=== PATIENT | male | born 1940 | race Caucasian/White ===

== ENCOUNTER → 2017-08-19 | Outpatient (CLI) | payer OTHER ==
[~2017-08-19] MED LIST: AMLO5TAB2 PO; ASPI-1181 PO; FURO40TA5 PO; LANS15CA14 PO; LOSA100T29 PO; METO50TA18 PO; MULT-1192 PO; RIVA20TA PO
== END | disposition home or self-care (01) ==
LOC: SHCH 10:54
PROVIDERS: ATTEND Internal Medicine Cardiovascular Disease
DX: I51.7 Cardiomegaly (principal); I48.0 Paroxysmal atrial fibrillation
CPT/HCPCS: 93306

== ENCOUNTER 2019-02-28 07:49 | Day surgery (SDC) | payer OTHER ==
[2019-02-24 10:50] VITALS: BP 111/75
[2019-02-24 10:57] LABS: BASOPHILS % (AUTO) 1.6 % (0.0-5.0); HEMATOCRIT 43.3 % (42-54); LYMPHOCYTES % (AUTO) 21.9 % (21.0-51.0); MEAN CORPUSCULAR HGB CONC 34.2 g/dL (32.0-36.0); MEAN CORPUSCULAR VOLUME 93.5 fL (79-99); MONOCYTES % (AUTO) 14.3 % (3.0-13.0); NEUTROPHILS % (AUTO) 59.2 % (40.0-77.0); PLATELET COUNT (AUTO) 262 K/uL (130-400); RED BLOOD CELL COUNT(AUTO) 4.62 MIL/uL (4.50-6.20); RED CELL DISTRIBUTION WIDTH 14.4 % (11.0-15.5); WHITE BLOOD COUNT (AUTO) 7.1 K/uL (4.8-10.8)
[2019-02-24 11:00] LABS: CREATININE 0.8 mg/dL (0.5-1.5); POTASSIUM 3.5 mmol/L (3.5-5.1)
[2019-02-24 11:03] LABS: INR 1.15 (0.85-1.15); PARTIAL THROMBOPLASTIN TIME 31.3 SEC (26.3-35.5)
[2019-02-28] VITALS (13 sets, daily range): BP systolic 118–137; BP diastolic 73–99
[~2019-02-28] VITALS: Ht 177.8 cm; Wt 100.5 kg
[~2019-02-28 07:49] MED LIST changes: -AMLO5TAB2 PO; +AMLO5TAB9 PO; -ASPI-1181 PO; -LANS15CA14 PO; -LOSA100T29 PO; +LOSA100T58 PO; -METO50TA18 PO; -MULT-1192 PO; +OMEP-50 PO; +SOTA120T PO
[2019-02-28] MEDS ORDERED: MIDAZOLAM HCL 1 MG/ML 2ML VIAL ONE (09:06)
[2019-02-28] MEDS ORDERED: FENTANYL CITRATE PF 50 MCG/1 ML 2ML VIAL ONE (09:07)
[2019-02-28] MEDS ORDERED: SODIUM CHLORIDE 0.9% 1000ML 1,000 ML IV ONE (09:27)
== END 2019-02-28 12:45 | disposition home or self-care (01) ==
LOC: DAH 07:49
PROVIDERS: ATTEND Internal Medicine Cardiovascular Disease
DX: I42.0 Dilated cardiomyopathy (principal); D68.59 Other primary thrombophilia; N40.0 Benign prostatic hyperplasia without lower urinary tract symptoms; I11.0 Hypertensive heart disease with heart failure; I50.23 Acute on chronic systolic (congestive) heart failure; I48.0 Paroxysmal atrial fibrillation; Z87.891 Personal history of nicotine dependence; Z90.49 Acquired absence of other specified parts of digestive tract; Z98.890 Other specified postprocedural states; Z82.49 Family history of ischemic heart disease and other diseases of the circulatory system; Z82.3 Family history of stroke; Z72.89 Other problems related to lifestyle; Z87.01 Personal history of pneumonia (recurrent); Z88.0 Allergy status to penicillin; Z79.01 Long term (current) use of anticoagulants; Z79.899 Other long term (current) drug therapy
CPT/HCPCS: 36415; 80048; 85025; 85610; 85730; 92960; 93005 ×2; A4215; A4216; A4221; A4222; A4223 ×3; A4606; A4615; A4663; J2250; J3010; J7030; 99152

== ENCOUNTER → 2020-01-06 | Outpatient (CLI) | payer OTHER ==
[~2020-01-06] MED LIST changes: -OMEP-50 PO; +OMEP20CA12 PO; +SERT50TA12 PO; +SOTA160T PO
== END | disposition home or self-care (01) ==
LOC: SHCH 10:41
PROVIDERS: ATTEND Internal Medicine Cardiovascular Disease
DX: I51.7 Cardiomegaly (principal); I49.8 Other specified cardiac arrhythmias
CPT/HCPCS: 93306

== ENCOUNTER 2020-01-17 06:29 | Day surgery (SDC) | payer OTHER ==
[2020-01-13 13:34] VITALS: BP 126/81
[2020-01-13 14:17] LABS: BASOPHILS % (AUTO) 1.5 % (0.0-5.0); EOSINOPHILS % (AUTO) 3.1 % (0.0-8.0); HEMATOCRIT 42.8 % (42-54); LYMPHOCYTES % (AUTO) 22.6 % (21.0-51.0); MEAN CORPUSCULAR HGB CONC 34.1 g/dL (32.0-36.0); MEAN CORPUSCULAR VOLUME 90.9 fL (79-99); MONOCYTES % (AUTO) 12.7 % (3.0-13.0); NEUTROPHILS % (AUTO) 59.9 % (40.0-77.0); PLATELET COUNT (AUTO) 324 K/uL (130-400); RED BLOOD CELL COUNT(AUTO) 4.71 MIL/uL (4.50-6.20); RED CELL DISTRIBUTION WIDTH 13.9 % (11.0-15.5); WHITE BLOOD COUNT (AUTO) 8.4 K/uL (4.8-10.8)
[2020-01-13 14:26] LABS: CREATININE 0.8 mg/dL (0.5-1.5); POTASSIUM 3.9 mmol/L (3.5-5.1)
[~2020-01-17] VITALS: Ht 180.3 cm; Wt 99.3 kg
[2020-01-17] VITALS (18 sets, daily range): BP systolic 106–163; BP diastolic 62–93
[~2020-01-17 06:29] MED LIST changes: +SODIUM CHLORIDE 0.9% 1000ML 1,000 ML IV SCH; -SOTA120T PO
--- NOTE | 2020-01-17 06:40 | NUR ---
preop pt arrived ambulatory in no distress. pt oriented to room and calllight. pt here for cardioversion.
[2020-01-17] MEDS ORDERED: NALOXONE HCL 0.4 MG/1 ML ML ONE (07:55)
[2020-01-17] MEDS ORDERED: FENTANYL CITRATE PF 50 MCG/1 ML 2ML VIAL ONE (07:56)
[2020-01-17] MEDS ORDERED: MIDAZOLAM HCL 1 MG/ML 2ML VIAL ONE (07:57)
[2020-01-17] MEDS ORDERED: FLUMAZENIL 0.1MG/1ML 5ML VIAL IV ONE (07:59)
--- NOTE | 2020-01-17 08:10 | NUR ---
CARDIOVERSION CARDIOVERSION PERFORMED AT BEDSIDE TIME OUT DONE AT [address] HOWARD START TIME AT 0814 VERSED 1MG/FENTANYL 50MCG IVP SLOW AT 0814 VERSED 1MG/FENTANYL 25MCG IVP SLOW AT 0819 VERSED 1MG/FENTANYL 25MCG IVP SLOW AT 0823 VERSED 1MG/FENTANYL 25MCG IVP SLOW AT 0826 SHOCK #1 100 JOULES AT 0827 DID NOT CONVERT SHOCK #2 200 JOULES AT 0828 CONVERTED BOTH EXTERNAL SHOCKS FINISH PROCEDURE TIME AT 929 RECOVERY STARTED AT 929 PT TOLERATED PROCEDURE WELL WITH NO DISCOMFORTS. PT COVERTED, V/S STABLE, DR HOWARD SPOKE TO AND OUT OF ROOM AT 09. PT WILL BE DISCHARGED AT 10 AM PER MD ORDERS. Addendum: 01/17/20 at 1024 by JULIETA ALLEN RN RN CORRECTION PROCEDURE FINISH TIME 829 RECOVERY STARTED AT 829 DR HOWARD SPOKE TO VIA PHONE AT 829 AND LEFT ROOM
--- NOTE | 2020-01-17 10:00 | NUR ---
DISCHARGE PTS GIVEN DISCHARGE INSTRUCTIONS VIA PHONE. PT IN NO DISTRESS AND TAKEN OUT VIA W/C BY PAULA ABEL.
== END 2020-01-17 10:00 | disposition home or self-care (01) ==
LOC: DAH 06:29
PROVIDERS: ATTEND Internal Medicine Cardiovascular Disease
DX: I48.0 Paroxysmal atrial fibrillation (principal); I49.1 Atrial premature depolarization; I11.0 Hypertensive heart disease with heart failure; I50.43 Acute on chronic combined systolic (congestive) and diastolic (congestive) heart failure; I44.7 Left bundle-branch block, unspecified; I42.0 Dilated cardiomyopathy; E66.3 Overweight; Z68.30 Body mass index [BMI] 30.0-30.9, adult; Z72.89 Other problems related to lifestyle; Z79.01 Long term (current) use of anticoagulants; Z98.890 Other specified postprocedural states; Z87.891 Personal history of nicotine dependence; Z88.0 Allergy status to penicillin
CPT/HCPCS: 36415; 80048; 85025; 92960; 93005 ×2; A4215; A4216; A4221; A4222; A4223 ×3; A4606; A4615; A4657; A4663; J2250; J3010; J7030 ×2; 99152; 99153; J2310; J3490

== ENCOUNTER 2020-05-07 07:19 | Day surgery (SDC) | payer OTHER ==
[2020-05-04 13:32] LABS: BASOPHILS % (AUTO) 1.2 % (0.0-5.0); EOSINOPHILS % (AUTO) 2.4 % (0.0-8.0); HEMATOCRIT 42.9 % (42-54); LYMPHOCYTES % (AUTO) 15.7 % (21.0-51.0); MEAN CORPUSCULAR HEMOGLOBIN 31.2 pg (27.0-33.0); MEAN CORPUSCULAR HGB CONC 33.3 g/dL (32.0-36.0); MEAN CORPUSCULAR VOLUME 93.5 fL (79-99); MONOCYTES % (AUTO) 13.9 % (3.0-13.0); NEUTROPHILS % (AUTO) 66.5 % (40.0-77.0); PLATELET COUNT (AUTO) 332 K/uL (130-400); RED BLOOD CELL COUNT(AUTO) 4.59 MIL/uL (4.50-6.20); RED CELL DISTRIBUTION WIDTH 14.4 % (11.0-15.5); WHITE BLOOD COUNT (AUTO) 9.4 K/uL (4.8-10.8)
[2020-05-04 13:39] LABS: POTASSIUM 3.8 mmol/L (3.5-5.1)
[2020-05-04 14:23] VITALS: BP 119/70
[~2020-05-07] VITALS: Ht 180.3 cm; Wt 101.7 kg
[~2020-05-07 07:19] MED LIST changes: +AMIO200T6 PO; +AMLO-257 PO; -AMLO5TAB9 PO; -SODIUM CHLORIDE 0.9% 1000ML 1,000 ML IV SCH; -SOTA160T PO
[2020-05-07 07:45] VITALS: BP 149/84
[2020-05-07] MEDS ORDERED: SODIUM CHLORIDE 0.9% 1000ML 1,000 ML IV ONE (08:22)
[2020-05-07] MEDS ORDERED: PROPOFOL 10 MG/ML 20ML VIAL IV ONE (10:54)
[2020-05-07 11:30] VITALS: BP 138/75
--- NOTE | 2020-05-07 11:30 | NUR ---
SUCCESSFUL CARDIOVERSION. PT AWAKE AND ALERT. NO ACUTE DISTRESS NOTED. PLACED BACK ON ROOM AIR. AIRWAY PATENT . VS STABLE
[2020-05-07 11:45] VITALS: BP 121/70
[2020-05-07 12:00] VITALS: BP 122/74
[2020-05-07 12:30] VITALS: BP 136/79
--- NOTE | 2020-05-07 12:30 | NUR ---
PT DISCHARGED HOME- AWAKE AND ALERT. PRINTED AND VERBAL DISCHARGE INSTRUCTION GIVEN VERBALIZES UNDERSTANDING IV CATH RT WRIST REMOVED INTACT. TO CAR VIA WHEELCHAIR. STABLE
== END 2020-05-07 12:30 | disposition home or self-care (01) ==
LOC: DAH 07:19
PROVIDERS: ATTEND Internal Medicine Cardiovascular Disease
DX: I48.19 Other persistent atrial fibrillation (principal); Z20.828 Contact with and (suspected) exposure to other viral communicable diseases; I42.0 Dilated cardiomyopathy; I11.0 Hypertensive heart disease with heart failure; I50.23 Acute on chronic systolic (congestive) heart failure; I44.7 Left bundle-branch block, unspecified; Z79.899 Other long term (current) drug therapy; Z87.891 Personal history of nicotine dependence; Z98.890 Other specified postprocedural states; Z82.49 Family history of ischemic heart disease and other diseases of the circulatory system; Z79.01 Long term (current) use of anticoagulants
CPT/HCPCS: 36415; 80048; 85025; 92960; 93005 ×2; A4215; A4216; A4221; A4222; A4223 ×3; A4606; A4615; A4663; C9803; J2704; J7030; U0003; 99156

== ENCOUNTER → 2020-07-11 | Outpatient (CLI) | payer OTHER ==
[~2020-07-11] MED LIST changes: +SERT-439 PO; -SERT50TA12 PO
== END | disposition home or self-care (01) ==
LOC: SHCH 15:01
PROVIDERS: ATTEND Internal Medicine Cardiovascular Disease
DX: I87.2 Venous insufficiency (chronic) (peripheral) (principal)
CPT/HCPCS: 93970

== ENCOUNTER → 2021-04-09 | Outpatient (CLI) | payer OTHER ==
[~2021-04-09] MED LIST changes: -AMIO200T6 PO; +AMIO200T68 PO; +DRON400T7 PO; +LEVO75CA5 PO; +METO2.5T2 PO
== END | disposition home or self-care (01) ==
LOC: SHCH 14:58
PROVIDERS: ATTEND Internal Medicine Cardiovascular Disease
DX: I35.0 Nonrheumatic aortic (valve) stenosis (principal); I11.9 Hypertensive heart disease without heart failure; R55 Syncope and collapse
CPT/HCPCS: 93306; 93356

== ENCOUNTER 2021-04-24 07:23 | Day surgery (SDC) | payer OTHER ==
[2021-04-23 12:08] LABS: BASOPHILS % (AUTO) 1.4 % (0.0-5.0); EOSINOPHILS % (AUTO) 3.2 % (0.0-8.0); HEMATOCRIT 39.1 % (42-54); LYMPHOCYTES % (AUTO) 18.8 % (21.0-51.0); MEAN CORPUSCULAR HEMOGLOBIN 30.7 pg (27.0-33.0); MEAN CORPUSCULAR HGB CONC 33.2 g/dL (32.0-36.0); MEAN CORPUSCULAR VOLUME 92.4 fL (79-99); MONOCYTES % (AUTO) 16.7 % (3.0-13.0); NEUTROPHILS % (AUTO) 59.7 % (40.0-77.0); PLATELET COUNT (AUTO) 336 K/uL (130-400); RED BLOOD CELL COUNT(AUTO) 4.23 MIL/uL (4.50-6.20); RED CELL DISTRIBUTION WIDTH 13.5 % (11.0-15.5); WHITE BLOOD COUNT (AUTO) 8.3 K/uL (4.8-10.8)
[2021-04-23 12:39] LABS: INR 1.43 (0.85-1.15); PROTHROMBIN TIME 15.1 SEC (9.6-11.6)
[2021-04-23 12:40] LABS: PARTIAL THROMBOPLASTIN TIME 39.4 SEC (26.3-35.5)
[2021-04-23 12:45] LABS: CREATININE 1.7 mg/dL (0.5-1.5); POTASSIUM 3.8 mmol/L (3.5-5.1)
[2021-04-23 13:12] VITALS: BP 124/71
[2021-04-24] VITALS (10 sets, daily range): BP systolic 110–130; BP diastolic 64–76
[~2021-04-24] VITALS: Ht 181.6 cm; Wt 107.5 kg
[~2021-04-24 07:23] MED LIST changes: -AMIO200T68 PO; -SERT-439 PO
[2021-04-24] MEDS ORDERED: 0.9%NACL 1000ML 1,000 ML IV ONE (07:31)
[2021-04-24] MEDS ORDERED: PROPOFOL 10 MG/ML 20ML VIAL IV ONE (09:40)
== END 2021-04-24 10:35 | disposition home or self-care (01) ==
LOC: DAH 07:23 → CLH 07:23
PROVIDERS: ATTEND Internal Medicine Cardiovascular Disease
DX: I48.19 Other persistent atrial fibrillation (principal); I11.0 Hypertensive heart disease with heart failure; I50.23 Acute on chronic systolic (congestive) heart failure; Z88.0 Allergy status to penicillin; Z79.01 Long term (current) use of anticoagulants; Z79.899 Other long term (current) drug therapy; Z20.822 Contact with and (suspected) exposure to COVID-19
CPT/HCPCS: 36415; 80048; 85025; 85610; 85730; 87635; 92960; 93005 ×2; A4215; A4216; A4221; A4222; A4223 ×3; A4606; A4663; C9803; J2704; J7030; 99156

== ENCOUNTER → 2022-01-06 | Outpatient (CLI) | payer OTHER ==
[~2022-01-06] VITALS: Ht 180.3 cm; Wt 99.3 kg
[~2022-01-06] MED LIST changes: +REGADENOSON 0.4 MG/5 ML PF SYG IVP SCH
== END | disposition home or self-care (01) ==
LOC: SHCH 08:40
PROVIDERS: ATTEND Internal Medicine Cardiovascular Disease
DX: I48.0 Paroxysmal atrial fibrillation (principal); I47.2 Ventricular tachycardia; I48.91 Unspecified atrial fibrillation; I48.92 Unspecified atrial flutter
CPT/HCPCS: 78452; 96374; 93017; J2785; A9500 ×2

== ENCOUNTER → 2022-03-12 | Outpatient (CLI) | payer OTHER ==
[~2022-03-12] MED LIST changes: +ALBUTEROL 0.083% 2.5 MG/3 ML INH IH ONE; +DILT120C43 PO; -LOSA100T58 PO; +LOSA50TA64 PO; +MIRT-93 PO; +POLY17PO4 PO; -REGADENOSON 0.4 MG/5 ML PF SYG IVP SCH
== END | disposition home or self-care (01) ==
LOC: RESP 08:33
PROVIDERS: ATTEND Internal Medicine Cardiovascular Disease
DX: G47.30 Sleep apnea, unspecified (principal); R06.02 Shortness of breath
CPT/HCPCS: 94060; 94727; 94729

== ENCOUNTER 2022-04-11 06:13 | Day surgery (SDC) | payer OTHER ==
[2022-04-10 09:52] LABS: BASOPHILS % (AUTO) 0.8 % (0.0-5.0); EOSINOPHILS % (AUTO) 3.4 % (0.0-8.0); LYMPHOCYTES % (AUTO) 19.6 % (21.0-51.0); MEAN CORPUSCULAR HEMOGLOBIN 28.8 pg (27.0-33.0); MEAN CORPUSCULAR HGB CONC 31.5 g/dL (32.0-36.0); MEAN CORPUSCULAR VOLUME 91.3 fL (79-99); MONOCYTES % (AUTO) 15.3 % (3.0-13.0); NEUTROPHILS % (AUTO) 60.6 % (40.0-77.0); PLATELET COUNT (AUTO) 339 K/uL (130-400); RED BLOOD CELL COUNT(AUTO) 4.27 MIL/uL (4.50-6.20); RED CELL DISTRIBUTION WIDTH 14.5 % (11.0-15.5); WHITE BLOOD COUNT (AUTO) 7.1 K/uL (4.8-10.8)
[2022-04-10 10:02] LABS: INR 1.17 (0.85-1.15); PROTHROMBIN TIME 12.6 SEC (9.6-11.6)
[2022-04-10 10:04] LABS: PARTIAL THROMBOPLASTIN TIME 33.5 SEC (26.3-35.5)
[2022-04-10 10:05] LABS: CREATININE 0.9 mg/dL (0.5-1.5); POTASSIUM 4.1 mmol/L (3.5-5.1)
[2022-04-10 11:39] VITALS: BP 138/92
[2022-04-11] VITALS (13 sets, daily range): BP systolic 124–148; BP diastolic 71–100
[~2022-04-11] VITALS: Ht 180.3 cm; Wt 98.0 kg
[~2022-04-11 06:13] MED LIST changes: +0.9%NACL 1000ML 1,000 ML IV SCH; -ALBUTEROL 0.083% 2.5 MG/3 ML INH IH ONE; -AMLO-257 PO; -LEVO75CA5 PO; +LOSA100T58 PO; -LOSA50TA64 PO; -METO2.5T2 PO; -MIRT-93 PO; -POLY17PO4 PO
[2022-04-11] MEDS ORDERED: PHENYLEPHRINE HCL 10 MG/ML 1ML VIAL IV ONE ×2 (08:33→08:35)
[2022-04-11] MEDS ORDERED: PROPOFOL 10 MG/ML 20ML VIAL IV ONE (08:33)
== END 2022-04-11 09:45 | disposition home or self-care (01) ==
LOC: DAH 06:13
PROVIDERS: ATTEND Internal Medicine Cardiovascular Disease
DX: I48.19 Other persistent atrial fibrillation (principal); Z20.822 Contact with and (suspected) exposure to COVID-19; I44.7 Left bundle-branch block, unspecified; I11.0 Hypertensive heart disease with heart failure; I42.0 Dilated cardiomyopathy; I50.23 Acute on chronic systolic (congestive) heart failure; Z98.890 Other specified postprocedural states; Z79.899 Other long term (current) drug therapy; Z82.3 Family history of stroke; Z79.01 Long term (current) use of anticoagulants; Z87.891 Personal history of nicotine dependence
CPT/HCPCS: 87426; 80048; 85025; 85610; 85730; 36415; 92960; 93005 ×2; J7030; J2704; J2370 ×2; A4215; A4222; A4221; A4663; A4216; A4606; A4223 ×3; 99156

== ENCOUNTER → 2022-05-07 | Outpatient (CLI) | payer OTHER ==
[~2022-05-07] MED LIST changes: -0.9%NACL 1000ML 1,000 ML IV SCH; +IOHEXOL 350 MG/ML 100ML INFUS..BTL IV ONE
== END | disposition home or self-care (01) ==
LOC: RAH 08:03
PROVIDERS: ATTEND Internal Medicine Cardiovascular Disease
DX: J92.9 Pleural plaque without asbestos (principal); I48.0 Paroxysmal atrial fibrillation; I51.7 Cardiomegaly; J98.4 Other disorders of lung
CPT/HCPCS: 71275; Q9967

== ENCOUNTER 2022-06-27 17:51 | Inpatient (IN) | payer OTHER ==
[~2022-06-27] VITALS: Ht 180.3 cm; Wt 97.4 kg
[~2022-06-27 17:51] MED LIST changes: -IOHEXOL 350 MG/ML 100ML INFUS..BTL IV ONE; -OMEP20CA12 PO
[2022-06-27 18:55] LABS: BASOPHILS % (AUTO) 1.3 % (0.0-5.0); EOSINOPHILS % (AUTO) 1.6 % (0.0-8.0); MEAN CORPUSCULAR HEMOGLOBIN 27.2 pg (27.0-33.0); MEAN CORPUSCULAR HGB CONC 31.4 g/dL (32.0-36.0); MEAN CORPUSCULAR VOLUME 86.7 fL (79-99); MONOCYTES % (AUTO) 15.6 % (3.0-13.0); NEUTROPHILS % (AUTO) 66.3 % (40.0-77.0); PLATELET COUNT (AUTO) 374 K/uL (130-400); RED BLOOD CELL COUNT(AUTO) 4.15 MIL/uL (4.50-6.20); RED CELL DISTRIBUTION WIDTH 14.7 % (11.0-15.5)
[2022-06-27] MEDS ORDERED: ALBUTEROL 0.083% 2.5 MG/3 ML INH IH ONE (19:00)
[2022-06-27 19:07] LABS: CREATININE 0.8 mg/dL (0.5-1.5); POTASSIUM 3.9 mmol/L (3.5-5.1)
[2022-06-27 19:12] LABS: ALBUMIN 3.8 g/dL (3.5-5.0); TOTAL PROTEIN, SERUM 6.5 g/dL (6.0-8.3)
[2022-06-27 19:17] LABS: B-TYPE NATRIURETIC PEPTIDE 482 pg/mL (0-100)
[2022-06-27] MEDS ORDERED: SOLU-MEDROL 125MG VIAL ONE (19:50)
[2022-06-27] MEDS ORDERED: SOLU-MEDROL 125MG VIAL IVP ONE (20:00)
[2022-06-27] MEDS ORDERED: IPRATROPIUM/ALBUTEROL SULFATE 3 ML SOLUTION IH ONE (20:00)
[2022-06-27] MEDS: IPRATROPIUM/ALBUTEROL SULFATE 3 ML SOLUTION IH ONE ×2 (20:01→20:09)
[2022-06-27] MEDS ORDERED: IOHEXOL 350 MG/ML 100ML INFUS..BTL IV ONE (20:58)
[2022-06-27] MEDS ORDERED: HYDRALAZINE 20MG/ML VIAL IV PRN (21:00)
[2022-06-27] MEDS ORDERED: ACETAMINOPHEN 325 MG TAB PO PRN (21:00)
[2022-06-27] MEDS ORDERED: ONDANSETRON 4MG INJ IVP PRN (21:00)
[2022-06-27] MEDS ORDERED: LACTULOSE 20 GM/30 ML UDCUP PO PRN (21:00)
[2022-06-27] MEDS ORDERED: IPRATROPIUM/ALBUTEROL SULFATE 3 ML SOLUTION IH PRN (21:00)
[2022-06-27] MEDS ORDERED: FUROSEMIDE 40MG VIAL IV ONE (21:00)
[2022-06-27] MEDS ORDERED: AZITHROMYCIN 500MG+NS 250ML IVPB SCH (21:00)
[2022-06-27] MEDS ORDERED: CLONIDINE HCL 0.1 MG TABLET PO PRN (21:00)
[2022-06-27] MEDS ORDERED: CEFTRIAXONE 1G VIAL IVP ONE (21:00)
[2022-06-27 21:28] LABS: APPEARANCE,URINE CLEAR (CLEAR); BILIRUBIN,URINE NEGATIVE (NEGATIVE); COLOR,URINE COLORLESS (YELLOW); GLUCOSE, URINE (UA) NEGATIVE (NEGATIVE); KETONES,URINE NEGATIVE (NEGATIVE); LEUKOCYTE ESTERASE ,URINE NEGATIVE Leu/uL (NEGATIVE); NITRATE,URINE NEGATIVE (NEGATIVE); OCCULT BLOOD,URINE NEGATIVE (NEGATIVE); PROTEIN,URINE NEGATIVE (NEGATIVE); UROBILINOGEN,URINE 0.2 mg/dL (0.2-1.0)
[2022-06-27 21:31] LABS: WBC,URINE 0-1 /HPF (0-1)
[2022-06-27] MEDS: DOCUSATE SODIUM 100 MG CAP PO SCH (21:52)
[2022-06-28 00:41] VITALS: BP 145/94
[2022-06-28] MEDS ORDERED: TEMA30CA PO (01:18)
[2022-06-28] MEDS ORDERED: OMEP20TA20 PO (01:18)
[2022-06-28 03:57] VITALS: BP 135/71
[2022-06-28 04:34] LABS: BASOPHILS % (AUTO) 0.3 % (0.0-5.0); HEMATOCRIT 33.9 % (42-54); LYMPHOCYTES % (AUTO) 3.6 % (21.0-51.0); MEAN CORPUSCULAR HEMOGLOBIN 27.5 pg (27.0-33.0); MEAN CORPUSCULAR VOLUME 88.7 fL (79-99); MONOCYTES % (AUTO) 1.2 % (3.0-13.0); NEUTROPHILS % (AUTO) 94.6 % (40.0-77.0); PLATELET COUNT (AUTO) 336 K/uL (130-400); RED BLOOD CELL COUNT(AUTO) 3.82 MIL/uL (4.50-6.20); RED CELL DISTRIBUTION WIDTH 14.7 % (11.0-15.5); WHITE BLOOD COUNT (AUTO) 5.9 K/uL (4.8-10.8)
[2022-06-28 04:51] LABS: CREATININE 0.8 mg/dL (0.5-1.5); MAGNESIUM 1.8 mg/dL (1.80-2.40); PHOSPHORUS 3.7 mg/dL (2.5-4.9); POTASSIUM 3.6 mmol/L (3.5-5.1)
[2022-06-28] MEDS ORDERED: MAGNESIUM 2GM PREMIX 50ML 50 ML IV PRN (06:00)
[2022-06-28] MEDS ORDERED: POTASSIUM CHLORIDE 10MEQ/100ML 100 ML IV PRN (06:00)
[2022-06-28] MEDS ORDERED: POTASSIUM CHLORIDE 10% ELIXIR 20 MEQ/15 ML UDCUP PO PRN (06:00)
[2022-06-28] MEDS ORDERED: LIDOCAINE HCL-MPF 1% 2ML VIAL IV PRN (06:00)
[2022-06-28] MEDS ORDERED: KCL 20 MEQ ERTAB PO PRN (06:00)
[2022-06-28] MEDS: ALBUTEROL 0.083% 2.5 MG/3 ML INH IH SCH ×4 (06:47→23:55)
[2022-06-28] MEDS: IPRATROPIUM 0.5 MG/2.5 ML INH IH SCH ×6 (06:47→23:55)
[2022-06-28 08:00] VITALS: BP 147/92
[2022-06-28] MEDS: DOCUSATE SODIUM 100 MG CAP PO SCH ×2 (09:00→21:10)
[2022-06-28] MEDS: POLYETHYLENE GLYCOL 3350 17 GM POWD.PACK PO SCH (09:00)
[2022-06-28] MEDS: BENZONATATE 100 MG CAPSULE PO SCH ×2 (09:02→16:08)
[2022-06-28] MEDS: GUAIFENESIN-DM 200/20 MG 10 ML PO PRN (09:02)
[2022-06-28] MEDS: FAMOTIDINE 20MG TAB PO SCH ×2 (09:02→21:10)
[2022-06-28] MEDS: DRONEDARONE HYDROCHLORIDE 400 MG TABLET PO SCH ×2 (09:02→21:09)
[2022-06-28] MEDS: FUROSEMIDE 40MG VIAL IV SCH ×2 (09:03→21:10)
[2022-06-28] MEDS: LOSARTAN 100 MG TABLET PO SCH ×2 (09:03→21:10)
[2022-06-28] MEDS: DILTIAZEM 120MG SR CAP PO SCH (09:03)
[2022-06-28 12:00] VITALS: BP 152/95
[2022-06-28 16:00] VITALS: BP 127/73
[2022-06-28] MEDS: RIVAROXABAN 20 MG TABLET PO SCH (21:09)
[2022-06-28 21:10] VITALS: BP 151/89
[2022-06-28] MEDS: TEMAZEPAM 30 MG CAP PO SCH (21:35)
[2022-06-29] VITALS (7 sets, daily range): BP systolic 116–155; BP diastolic 71–96
[2022-06-29] MEDS: BENZONATATE 100 MG CAPSULE PO SCH ×5 (00:30→23:53)
[2022-06-29 05:00] LABS: MEAN CORPUSCULAR HEMOGLOBIN 27.5 pg (27.0-33.0); MEAN CORPUSCULAR HGB CONC 30.6 g/dL (32.0-36.0); RED CELL DISTRIBUTION WIDTH 14.9 % (11.0-15.5)
[2022-06-29 05:15] LABS: CREATININE 0.8 mg/dL (0.5-1.5); POTASSIUM 4.1 mmol/L (3.5-5.1)
[2022-06-29] MEDS: IPRATROPIUM 0.5 MG/2.5 ML INH IH SCH ×6 (06:00→23:38)
[2022-06-29] MEDS: ALBUTEROL 0.083% 2.5 MG/3 ML INH IH SCH ×4 (06:26→23:36)
[2022-06-29] MEDS: DRONEDARONE HYDROCHLORIDE 400 MG TABLET PO SCH ×2 (08:28→20:24)
[2022-06-29] MEDS: LOSARTAN 100 MG TABLET PO SCH ×2 (08:28→20:22)
[2022-06-29] MEDS: FUROSEMIDE 40MG VIAL IV SCH ×2 (08:28→20:24)
[2022-06-29] MEDS: FAMOTIDINE 20MG TAB PO SCH ×2 (08:28→20:22)
[2022-06-29] MEDS: DILTIAZEM 120MG SR CAP PO SCH (08:28)
[2022-06-29] MEDS: DOCUSATE SODIUM 100 MG CAP PO SCH ×2 (08:29→20:24)
[2022-06-29] MEDS: POLYETHYLENE GLYCOL 3350 17 GM POWD.PACK PO SCH (08:29)
[2022-06-29] MEDS: GUAIFENESIN-DM 200/20 MG 10 ML PO PRN ×2 (10:14→20:29)
[2022-06-29] MEDS: DOXYCYCLINE 100MG+NS 250ML IV SCH ×2 (13:08→23:53)
[2022-06-29] MEDS: PREDNISONE 20 MG TABLET PO SCH (13:08)
[2022-06-29] MEDS: RIVAROXABAN 20 MG TABLET PO SCH (20:22)
[2022-06-29] MEDS: TEMAZEPAM 30 MG CAP PO SCH (22:38)
[2022-06-30 04:31] VITALS: BP 134/88
[2022-06-30 05:47] LABS: HEMATOCRIT 36.5 % (42-54); MEAN CORPUSCULAR HEMOGLOBIN 27.5 pg (27.0-33.0); MEAN CORPUSCULAR HGB CONC 30.7 g/dL (32.0-36.0); MEAN CORPUSCULAR VOLUME 89.5 fL (79-99); RED BLOOD CELL COUNT(AUTO) 4.08 MIL/uL (4.50-6.20); RED CELL DISTRIBUTION WIDTH 14.8 % (11.0-15.5); WHITE BLOOD COUNT (AUTO) 10.4 K/uL (4.8-10.8)
[2022-06-30 06:16] LABS: CREATININE 0.8 mg/dL (0.5-1.5); MAGNESIUM 1.9 mg/dL (1.80-2.40); POTASSIUM 3.9 mmol/L (3.5-5.1)
[2022-06-30] MEDS: ALBUTEROL 0.083% 2.5 MG/3 ML INH IH SCH ×2 (07:01→11:37)
[2022-06-30] MEDS: IPRATROPIUM 0.5 MG/2.5 ML INH IH SCH ×4 (07:01→15:23)
[2022-06-30 08:16] VITALS: BP 149/96
[2022-06-30] MEDS: PREDNISONE 20 MG TABLET PO SCH (09:27)
[2022-06-30] MEDS: LOSARTAN 100 MG TABLET PO SCH (09:27)
[2022-06-30] MEDS: DOCUSATE SODIUM 100 MG CAP PO SCH (09:27)
[2022-06-30] MEDS: BENZONATATE 100 MG CAPSULE PO SCH ×2 (09:27→16:43)
[2022-06-30] MEDS: POLYETHYLENE GLYCOL 3350 17 GM POWD.PACK PO SCH (09:27)
[2022-06-30] MEDS: FUROSEMIDE 40MG VIAL IV SCH (09:27)
[2022-06-30] MEDS: FAMOTIDINE 20MG TAB PO SCH (09:27)
[2022-06-30] MEDS: DILTIAZEM 120MG SR CAP PO SCH (09:27)
[2022-06-30 10:24] LABS: ABG BASE EXCESS 8.7 mmol/L (-2.0-3.0); ABG OXYGEN SATURATION 95.2 % (95.0-99.0); ABG PCO2 55 mmHg (35-48)
[2022-06-30] MEDS: DOXYCYCLINE 100MG+NS 250ML IV SCH (11:38)
[2022-06-30 12:00] VITALS: BP 143/84
[2022-06-30] MEDS: DRONEDARONE HYDROCHLORIDE 400 MG TABLET PO SCH (12:02)
[2022-06-30] MEDS ORDERED: PRED20B PO (15:19)
[2022-06-30] MEDS ORDERED: ALBU90AE2 IH (15:19)
[2022-06-30] MEDS ORDERED: DOXY100C5 PO (15:19)
[2022-06-30 16:00] VITALS: BP 125/66
== END 2022-06-30 18:00 | disposition home or self-care (01) | DRG 291 ==
LOC: EDH 17:51 → OBSVTOIN 20:50 → UNDOADMOB 20:50 → EDHIP 20:50 → 4DH 23:30
PROVIDERS: ADMIT Internal Medicine Pulmonary Disease; ATTEND Internal Medicine Pulmonary Disease
DX: I11.0 Hypertensive heart disease with heart failure (principal); I50.23 Acute on chronic systolic (congestive) heart failure; J96.01 Acute respiratory failure with hypoxia; I48.20 Chronic atrial fibrillation, unspecified; J44.1 Chronic obstructive pulmonary disease with (acute) exacerbation; J91.8 Pleural effusion in other conditions classified elsewhere; Z20.822 Contact with and (suspected) exposure to COVID-19; I42.0 Dilated cardiomyopathy; H91.91 Unspecified hearing loss, right ear; E78.00 Pure hypercholesterolemia, unspecified; Z79.01 Long term (current) use of anticoagulants; Z90.49 Acquired absence of other specified parts of digestive tract
CPT/HCPCS: 36415; 36600; 71045; 71275; 80048; 80053; 81001; 82435; 82803; 82947; 82948; 83605; 83735; 83880; 84100; 84132; 84145; 84295; 84484; 85018; 85025; 85027; 87635; 87804; 93005; 93306; 93356; 94640; 94664; 94760; G0378; J0456; J0696; J1940; J2930; J3475; J3490; Q9967

== ENCOUNTER 2022-08-06 13:32 | Inpatient (IN) | payer OTHER ==
[~2022-08-06] VITALS: Ht 180.3 cm; Wt 928.0 kg
[~2022-08-06 13:32] MED LIST changes: +ALBU90AE2 IH; +DOXY100C5 PO; +OMEP20TA20 PO; +PRED20B PO; +TEMA30CA PO
[2022-08-06 14:25] LABS: BASOPHILS % (AUTO) 1.2 % (0.0-5.0); EOSINOPHILS % (AUTO) 0.5 % (0.0-8.0); MEAN CORPUSCULAR HEMOGLOBIN 26.7 pg (27.0-33.0); MEAN CORPUSCULAR HGB CONC 29.7 g/dL (32.0-36.0); MEAN CORPUSCULAR VOLUME 89.8 fL (79-99); MONOCYTES % (AUTO) 14.6 % (3.0-13.0); NEUTROPHILS % (AUTO) 72.3 % (40.0-77.0); PLATELET COUNT (AUTO) 309 K/uL (130-400); RED BLOOD CELL COUNT(AUTO) 4.23 MIL/uL (4.50-6.20); RED CELL DISTRIBUTION WIDTH 16.7 % (11.0-15.5); WHITE BLOOD COUNT (AUTO) 8.4 K/uL (4.8-10.8)
[2022-08-06 14:46] LABS: APPEARANCE,URINE CLEAR (CLEAR); BILIRUBIN,URINE NEGATIVE (NEGATIVE); COLOR,URINE LIGHT-YELLOW (YELLOW); GLUCOSE, URINE (UA) NEGATIVE (NEGATIVE); KETONES,URINE NEGATIVE (NEGATIVE); LEUKOCYTE ESTERASE ,URINE NEGATIVE Leu/uL (NEGATIVE); NITRATE,URINE NEGATIVE (NEGATIVE); OCCULT BLOOD,URINE NEGATIVE (NEGATIVE); PH,URINE 6.5 (5.0-8.0); PROTEIN,URINE NEGATIVE (NEGATIVE); UROBILINOGEN,URINE 0.2 mg/dL (0.2-1.0)
[2022-08-06 14:56] LABS: MUCUS,URINE RARE LPF (None Seen); RBC,URINE 0-1 /HPF (0-1); WBC,URINE 0-1 /HPF (0-1)
[2022-08-06 14:59] LABS: B-TYPE NATRIURETIC PEPTIDE 519 pg/mL (0-100)
[2022-08-06] MEDS ORDERED: FUROSEMIDE 40MG VIAL IV ONE (15:30)
[2022-08-06 16:08] LABS: ALBUMIN 2.6 g/dL (3.5-5.0); CREATININE 0.6 mg/dL (0.5-1.5); MAGNESIUM 1.5 mg/dL (1.80-2.40); TOTAL PROTEIN, SERUM 4.7 g/dL (6.0-8.3)
[2022-08-06 16:14] LABS: POTASSIUM 2.7 mmol/L (3.5-5.1)
[2022-08-06] MEDS ORDERED: POTASSIUM BICARB/CIT AC 25 MEQ TABLET.EFF PO ONE (16:30)
[2022-08-06 18:48] LABS: POTASSIUM 3.6 mmol/L (3.5-5.1)
[2022-08-06] MEDS ORDERED: NITROGLYCERIN 0.4 MG SL TAB SL PRN (19:00)
[2022-08-06] MEDS ORDERED: GUAIFENESIN SUGAR-FREE 100 MG/5 ML UDCUP PO PRN (19:00)
[2022-08-06] MEDS ORDERED: DOCUSATE SODIUM 100 MG CAP PO PRN (19:00)
[2022-08-06] MEDS ORDERED: LOPERAMIDE HCL 2 MG CAP PO PRN (19:00)
[2022-08-06] MEDS ORDERED: ACETAMINOPHEN 325 MG TAB PO PRN ×2 (19:00)
[2022-08-06] MEDS ORDERED: DIPHENHYDRAMINE HCL 25 MG CAPSULE PO PRN (19:00)
[2022-08-06] MEDS ORDERED: ONDANSETRON 4MG INJ IV PRN (19:00)
[2022-08-06 19:36] LABS: ALBUMIN 3.7 g/dL (3.5-5.0); CREATININE 0.8 mg/dL (0.5-1.5); TOTAL PROTEIN, SERUM 6.5 g/dL (6.0-8.3)
[2022-08-06] MEDS ORDERED: MAGNESIUM 2GM PREMIX 50ML 50 ML IV PRN (20:00)
[2022-08-06] MEDS ORDERED: POTASSIUM CHLORIDE 20MEQ/100ML 100 ML IV PRN (20:00)
[2022-08-06] MEDS ORDERED: LIDOCAINE HCL-MPF 1% 2ML VIAL IV PRN (20:00)
[2022-08-06 21:19] LABS: CREATININE 0.8 mg/dL (0.5-1.5); POTASSIUM 3.6 mmol/L (3.5-5.1)
[2022-08-06 21:23] LABS: ALBUMIN 3.5 g/dL (3.5-5.0); TOTAL PROTEIN, SERUM 6.3 g/dL (6.0-8.3)
[2022-08-06] MEDS: FAMOTIDINE 20MG TAB PO SCH (21:39)
[2022-08-06] MEDS: IPRATROPIUM/ALBUTEROL SULFATE 3 ML SOLUTION IH SCH (22:09)
[2022-08-06 22:45] VITALS: BP 157/111
[2022-08-06] MEDS ORDERED: LORA10TA7 PO (23:37)
[2022-08-07] MEDS: IPRATROPIUM/ALBUTEROL SULFATE 3 ML SOLUTION IH SCH ×4 (02:00→14:07)
[2022-08-07] MEDS ORDERED: IPRATROPIUM 0.5 MG/2.5 ML INH IH ONE (02:13)
[2022-08-07] MEDS ORDERED: ALBUTEROL 0.042% 1.25MG/3ML IH ONE ×2 (02:16→02:17)
[2022-08-07 03:40] LABS: BASOPHILS % (AUTO) 1.3 % (0.0-5.0); EOSINOPHILS % (AUTO) 1.9 % (0.0-8.0); HEMATOCRIT 33.7 % (42-54); MEAN CORPUSCULAR HEMOGLOBIN 26.9 pg (27.0-33.0); MEAN CORPUSCULAR HGB CONC 30.6 g/dL (32.0-36.0); NEUTROPHILS % (AUTO) 62.7 % (40.0-77.0); PLATELET COUNT (AUTO) 257 K/uL (130-400); RED BLOOD CELL COUNT(AUTO) 3.83 MIL/uL (4.50-6.20); RED CELL DISTRIBUTION WIDTH 16.3 % (11.0-15.5); WHITE BLOOD COUNT (AUTO) 7.8 K/uL (4.8-10.8)
[2022-08-07 03:57] LABS: CREATININE 0.7 mg/dL (0.5-1.5); POTASSIUM 3.7 mmol/L (3.5-5.1)
[2022-08-07 04:05] LABS: ALBUMIN 3.3 g/dL (3.5-5.0); MAGNESIUM 2.2 mg/dL (1.80-2.40); TOTAL PROTEIN, SERUM 5.8 g/dL (6.0-8.3)
[2022-08-07 04:24] VITALS: BP 125/61
[2022-08-07] MEDS ORDERED: TEMAZEPAM 30 MG CAP PO PRN (06:30)
[2022-08-07] MEDS: IPRATROPIUM 0.5 MG/2.5 ML INH IH SCH ×3 (06:37→23:20)
[2022-08-07] MEDS ORDERED: FUROSEMIDE 40MG VIAL IV ONE (08:00)
[2022-08-07] MEDS: FAMOTIDINE 20MG TAB PO SCH ×2 (08:30→21:12)
[2022-08-07] MEDS: DOXYCYCLINE 100MG+NS 250ML IV SCH ×2 (08:30→19:09)
[2022-08-07] MEDS: LORATADINE 10 MG TABLET PO SCH (08:31)
[2022-08-07] MEDS: DRONEDARONE HYDROCHLORIDE 400 MG TABLET PO SCH ×2 (08:31→21:13)
[2022-08-07] MEDS: DILTIAZEM 120MG SR CAP PO SCH (08:32)
[2022-08-07 08:55] VITALS: BP 137/92
[2022-08-07] MEDS ORDERED: LOSARTAN 100 MG TABLET PO SCH (09:00)
[2022-08-07] MEDS: KCL 20 MEQ ERTAB PO PRN ×5 (09:54→21:13)
[2022-08-07] MEDS ORDERED: LOSARTAN 100 MG TABLET PO ONE (10:30)
[2022-08-07 11:47] VITALS: BP 130/83
[2022-08-07 13:44] LABS: MAGNESIUM 2.2 mg/dL (1.80-2.40); POTASSIUM 3.6 mmol/L (3.5-5.1)
[2022-08-07] MEDS: FUROSEMIDE 40MG VIAL IV SCH (14:04)
[2022-08-07 16:52] VITALS: BP 140/71
[2022-08-07 20:08] VITALS: BP 149/92
[2022-08-07] MEDS: RIVAROXABAN 20 MG TABLET PO SCH (21:12)
[2022-08-07 23:08] VITALS: BP 144/82
[2022-08-07] MEDS: BUDESONIDE 0.25 MG/2 ML INH IH SCH (23:21)
[2022-08-08] MEDS: FUROSEMIDE 40MG VIAL IV SCH ×2 (00:38→13:13)
[2022-08-08 03:43] LABS: BASOPHILS % (AUTO) 1.4 % (0.0-5.0); EOSINOPHILS % (AUTO) 3.2 % (0.0-8.0); HEMATOCRIT 34.9 % (42-54); LYMPHOCYTES % (AUTO) 17.2 % (21.0-51.0); MEAN CORPUSCULAR HEMOGLOBIN 26.8 pg (27.0-33.0); MEAN CORPUSCULAR HGB CONC 30.4 g/dL (32.0-36.0); MEAN CORPUSCULAR VOLUME 88.4 fL (79-99); MONOCYTES % (AUTO) 17.1 % (3.0-13.0); NEUTROPHILS % (AUTO) 60.7 % (40.0-77.0); PLATELET COUNT (AUTO) 268 K/uL (130-400); RED BLOOD CELL COUNT(AUTO) 3.95 MIL/uL (4.50-6.20); RED CELL DISTRIBUTION WIDTH 16.5 % (11.0-15.5); WHITE BLOOD COUNT (AUTO) 7.2 K/uL (4.8-10.8)
[2022-08-08 03:51] LABS: INR 1.46 (0.85-1.15); PROTHROMBIN TIME 15.6 SEC (9.6-11.6)
[2022-08-08 03:55] LABS: CREATININE 0.9 mg/dL (0.5-1.5); POTASSIUM 3.8 mmol/L (3.5-5.1)
[2022-08-08 04:36] VITALS: BP 137/88
[2022-08-08] MEDS: DOXYCYCLINE 100MG+NS 250ML IV SCH ×2 (05:51→18:41)
[2022-08-08] MEDS: IPRATROPIUM 0.5 MG/2.5 ML INH IH SCH ×4 (06:55→23:50)
[2022-08-08] MEDS: BUDESONIDE 0.25 MG/2 ML INH IH SCH ×2 (06:55→19:07)
[2022-08-08 07:08] VITALS: BP 146/86
[2022-08-08] MEDS: DILTIAZEM 120MG SR CAP PO SCH (08:38)
[2022-08-08] MEDS: DRONEDARONE HYDROCHLORIDE 400 MG TABLET PO SCH ×2 (08:38→20:43)
[2022-08-08] MEDS: FAMOTIDINE 20MG TAB PO SCH ×2 (08:38→20:43)
[2022-08-08] MEDS: LORATADINE 10 MG TABLET PO SCH (08:38)
[2022-08-08] MEDS: LOSARTAN 100 MG TABLET PO SCH (08:39)
[2022-08-08] MEDS: KCL 20 MEQ ERTAB PO PRN (09:05)
[2022-08-08 11:09] VITALS: BP 137/87
[2022-08-08] MEDS: POTASSIUM CHLORIDE 10% ELIXIR 20 MEQ/15 ML UDCUP PO PRN ×2 (11:09→11:18)
[2022-08-08 15:43] VITALS: BP 127/83
[2022-08-08 19:43] VITALS: BP 161/76
[2022-08-08] MEDS: RIVAROXABAN 20 MG TABLET PO SCH (20:43)
[2022-08-09 00:32] VITALS: BP 132/80
[2022-08-09] MEDS: FUROSEMIDE 40MG VIAL IV SCH (00:39)
[2022-08-09 03:46] LABS: BASOPHILS % (AUTO) 1.3 % (0.0-5.0); EOSINOPHILS % (AUTO) 2.6 % (0.0-8.0); LYMPHOCYTES % (AUTO) 16.7 % (21.0-51.0); MEAN CORPUSCULAR HEMOGLOBIN 27.1 pg (27.0-33.0); MEAN CORPUSCULAR HGB CONC 30.6 g/dL (32.0-36.0); MEAN CORPUSCULAR VOLUME 88.6 fL (79-99); MONOCYTES % (AUTO) 17.6 % (3.0-13.0); NEUTROPHILS % (AUTO) 61.5 % (40.0-77.0); PLATELET COUNT (AUTO) 242 K/uL (130-400); RED BLOOD CELL COUNT(AUTO) 3.95 MIL/uL (4.50-6.20); RED CELL DISTRIBUTION WIDTH 16.4 % (11.0-15.5); WHITE BLOOD COUNT (AUTO) 7.6 K/uL (4.8-10.8)
[2022-08-09 03:53] LABS: POTASSIUM 3.6 mmol/L (3.5-5.1)
[2022-08-09 04:28] VITALS: BP 122/79
[2022-08-09] MEDS: DOXYCYCLINE 100MG+NS 250ML IV SCH (06:01)
[2022-08-09] MEDS: KCL 20 MEQ ERTAB PO PRN (06:01)
[2022-08-09] MEDS: IPRATROPIUM 0.5 MG/2.5 ML INH IH SCH (06:44)
[2022-08-09] MEDS: BUDESONIDE 0.25 MG/2 ML INH IH SCH (06:46)
[2022-08-09] MEDS ORDERED: DOXY-469 PO (07:07)
[2022-08-09] MEDS ORDERED: BUME2TAB5 PO (07:07)
[2022-08-09 07:35] VITALS: BP 133/89
[2022-08-09] MEDS: LORATADINE 10 MG TABLET PO SCH (08:44)
[2022-08-09] MEDS: LOSARTAN 100 MG TABLET PO SCH (08:44)
[2022-08-09] MEDS: DILTIAZEM 120MG SR CAP PO SCH (08:44)
[2022-08-09] MEDS: DRONEDARONE HYDROCHLORIDE 400 MG TABLET PO SCH (08:44)
[2022-08-09] MEDS: FAMOTIDINE 20MG TAB PO SCH (08:44)
== END 2022-08-09 09:30 | disposition home or self-care (01) | DRG 291 ==
LOC: EDH 13:32 → EDHIP 18:53 → OBSVTOIN 18:53 → 2DH 21:21
PROVIDERS: ADMIT Internal Medicine; ATTEND Internal Medicine
DX: I11.0 Hypertensive heart disease with heart failure (principal); I50.43 Acute on chronic combined systolic (congestive) and diastolic (congestive) heart failure; J96.21 Acute and chronic respiratory failure with hypoxia; I48.20 Chronic atrial fibrillation, unspecified; Z20.822 Contact with and (suspected) exposure to COVID-19; H91.91 Unspecified hearing loss, right ear; I42.0 Dilated cardiomyopathy; J44.9 Chronic obstructive pulmonary disease, unspecified; Z79.01 Long term (current) use of anticoagulants; Z79.899 Other long term (current) drug therapy; Z90.49 Acquired absence of other specified parts of digestive tract; Z91.199 Patient's noncompliance with other medical treatment and regimen due to unspecified reason
CPT/HCPCS: 36415; 71045; 80048; 80053; 81001; 83735; 83880; 84132; 84484; 85025; 85610; 87071; 87205; 87635; 87804; 93005; 94640; 94664; 94667; 94668; 97039; C9803; G0378; J1940; J3475; J3490

== ENCOUNTER 2022-09-10 17:21 | Emergency (ER) | payer OTHER ==
[~2022-09-10] VITALS: Ht 180.3 cm; Wt 94.8 kg
[~2022-09-10 17:21] MED LIST changes: +BUME2TAB5 PO; +DOXY-469 PO; -DOXY100C5 PO; -FURO40TA5 PO; +LORA10TA7 PO; -PRED20B PO
[2022-09-10] MEDS ORDERED: TETANUS/DIPHTHERIA TOXOID [ADULT] 0.5 ML VIAL IM ONE (19:30)
[2022-09-10 21:05] VITALS: BP 153/74
== END 2022-09-10 21:50 | disposition home or self-care (01) ==
LOC: EDH 17:21
DX: S61.211A Laceration without foreign body of left index finger without damage to nail, initial encounter (principal); I10 Essential (primary) hypertension; I48.91 Unspecified atrial fibrillation; J44.9 Chronic obstructive pulmonary disease, unspecified; Z79.899 Other long term (current) drug therapy; Z88.0 Allergy status to penicillin; W26.0XXA Contact with knife, initial encounter; Y93.89 Activity, other specified; Y92.89 Other specified places as the place of occurrence of the external cause; Y99.8 Other external cause status
CPT/HCPCS: 12001; 99282

== ENCOUNTER 2023-03-25 05:56 | Day surgery (SDC) | payer OTHER ==
[2023-03-23 10:36] LABS: BASOPHILS % (AUTO) 1.4 % (0.0-5.0); EOSINOPHILS # (AUTO) 0.13 K/uL (0.00-0.70); EOSINOPHILS % (AUTO) 1.8 % (0.0-8.0); IMMATURE GRANULOCYTE ABSOLUTE 0.03 K/uL (0-1); LYMPHOCYTES % (AUTO) 13.5 % (21.0-51.0); MEAN CORPUSCULAR HGB CONC 30.3 g/dL (32.0-36.0); MEAN CORPUSCULAR VOLUME 92.4 fL (79-99); MONOCYTES % (AUTO) 14.3 % (3.0-13.0); NEUTROPHILS # (AUTO) 4.9 K/uL (1.8-7.7); NEUTROPHILS % (AUTO) 68.6 % (40.0-77.0); PLATELET COUNT (AUTO) 287 K/uL (130-400); RED BLOOD CELL COUNT(AUTO) 4.22 MIL/uL (4.50-6.20); RED CELL DISTRIBUTION WIDTH 15.3 % (11.0-15.5); WHITE BLOOD COUNT (AUTO) 7.2 K/uL (4.8-10.8)
[2023-03-23 10:42] LABS: CREATININE 0.9 mg/dL (0.5-1.5); POTASSIUM 3.7 mmol/L (3.5-5.1)
[2023-03-23 10:43] LABS: INR 1.12 (0.85-1.15); PROTHROMBIN TIME 12.9 SEC (9.6-11.6)
[2023-03-23 10:44] LABS: PARTIAL THROMBOPLASTIN TIME 33.3 SEC (26.3-35.5)
[2023-03-23 11:09] VITALS: BP 158/101; PULSE 83; RESP 15
[~2023-03-25] VITALS: Ht 180.3 cm; Wt 99.0 kg
[2023-03-25] VITALS (20 sets, daily range): BP systolic 118–169; BP diastolic 51–109; PULSE 70–95; RESP 15–28
[~2023-03-25 05:56] MED LIST changes: -ALBU90AE2 IH; +BUDE10.7 PO; -DILT120C43 PO; -DOXY-469 PO; -DRON400T7 PO; +FLUT16H EN; -LOSA100T58 PO; +LOSA100T59 PO; +METO-391 PO; +OXYGEN NASAL
[2023-03-25] MEDS ORDERED: 0.9%NACL 1000ML 1,000 ML IV ONE (06:10)
[2023-03-25] MEDS ORDERED: LIDOCAINE HCL 1% MDV 50ML VIAL ONE (07:33)
[2023-03-25] MEDS ORDERED: BUPIVACAINE/PF 0.25% 30ML VIAL IJ ONE (07:33)
[2023-03-25] MEDS ORDERED: IOHEXOL-350 50ML VIAL IV ONE (07:33)
[2023-03-25] MEDS ORDERED: CEFAZOLIN SODIUM 1 GM VIAL ONE (07:33)
[2023-03-25] MEDS ORDERED: LIDOCAINE PF 100MG/5ML (2%) SYRINGE 5ML ONE (08:09)
[2023-03-25] MEDS ORDERED: ROCURONIUM 10MG/1ML SYR 10 MG/ML ML ONE (08:09)
[2023-03-25] MEDS ORDERED: PROPOFOL 10 MG/ML 20ML VIAL IV ONE (08:10)
[2023-03-25] MEDS ORDERED: PHENYLEPHRINE HCL 10 MG/ML 1ML VIAL IV ONE (08:11)
[2023-03-25] MEDS ORDERED: VANCOMYCIN 1G/250ML KIT 500 ML IV ONE (08:26)
[2023-03-25] MEDS ORDERED: KETAMINE 50MG/ML SYRINGE 50 MG/ML DISP.SYRIN ONE (08:27)
[2023-03-25] MEDS ORDERED: IODIXANOL 320 MG/ML 100 ML VIAL ONE (08:36)
[2023-03-25] MEDS ORDERED: MIDAZOLAM HCL 1 MG/ML 2ML VIAL ONE (08:41)
[2023-03-25] MEDS ORDERED: TRAM50TA4 PO (10:29)
[2023-03-25] MEDS ORDERED: ACETAMINOPHEN 500 MG TABLET PO PRN (10:30)
[2023-03-25] MEDS ORDERED: ACETAMINOPHEN WITH CODEINE 1 TAB TAB PO PRN (10:30)
[2023-03-25] MEDS ORDERED: HYDRALAZINE 20MG/ML VIAL ONE (10:42)
== END 2023-03-25 15:00 | disposition home or self-care (01) ==
LOC: DAH 05:56
PROVIDERS: ATTEND Internal Medicine Cardiovascular Disease
DX: I42.8 Other cardiomyopathies (principal); I42.0 Dilated cardiomyopathy; I45.89 Other specified conduction disorders; I11.0 Hypertensive heart disease with heart failure; I44.7 Left bundle-branch block, unspecified; I48.21 Permanent atrial fibrillation; Z88.0 Allergy status to penicillin; Z82.3 Family history of stroke; Z82.49 Family history of ischemic heart disease and other diseases of the circulatory system; Z87.891 Personal history of nicotine dependence; Z72.89 Other problems related to lifestyle; Z79.899 Other long term (current) drug therapy; Z98.890 Other specified postprocedural states
CPT/HCPCS: 80048; 85025; 85610; 85730; 36415; 93005; 33249; 33225; 71045; C1769; C1882; C1900; C1895; J7030; J0665; J2001; J0360; J2250; J3370; J3490 ×2; J2371; Q9967; A4215; A4222; A4221; A4663; A4216; A4606; A4223 ×3; J0690; J2704; C1896

== ENCOUNTER 2023-06-01 08:02 | Emergency (ER) | payer OTHER ==
[~2023-06-01] VITALS: Ht 180.3 cm; Wt 93.4 kg
[~2023-06-01 08:02] MED LIST changes: +TRAM50TA4 PO
[2023-06-01 08:43] LABS: BASOPHILS # (AUTO) 0.06 K/uL (0.00-0.20); BASOPHILS % (AUTO) 0.5 % (0.0-5.0); EOSINOPHILS # (AUTO) 0.01 K/uL (0.00-0.70); EOSINOPHILS % (AUTO) 0.1 % (0.0-8.0); HEMATOCRIT 38.1 % (42-54); IMMATURE GRANULOCYTE ABSOLUTE 0.06 K/uL (0-1); LYMPHOCYTES # (AUTO) 0.8 K/uL (1.0-4.8); LYMPHOCYTES % (AUTO) 7.1 % (21.0-51.0); MEAN CORPUSCULAR HEMOGLOBIN 27.9 pg (27.0-33.0); MEAN CORPUSCULAR HGB CONC 31.2 g/dL (32.0-36.0); MEAN CORPUSCULAR VOLUME 89.4 fL (79-99); MONOCYTES # (AUTO) 1.1 K/uL (0.1-1.0); MONOCYTES % (AUTO) 10.2 % (3.0-13.0); NEUTROPHILS % (AUTO) 81.6 % (40.0-77.0); PLATELET COUNT (AUTO) 307 K/uL (130-400); RED BLOOD CELL COUNT(AUTO) 4.26 MIL/uL (4.50-6.20); RED CELL DISTRIBUTION WIDTH 16.4 % (11.0-15.5)
[2023-06-01 08:55] LABS: CREATININE 0.9 mg/dL (0.5-1.5); POTASSIUM 3.2 mmol/L (3.5-5.1)
[2023-06-01 09:00] LABS: ALBUMIN 4.1 g/dL (3.5-5.0); BILIRUBIN,TOTAL 0.8 mg/dL (0.2-1.0); TOTAL PROTEIN, SERUM 7.5 g/dL (6.0-8.3)
[2023-06-01 12:38] LABS: APPEARANCE,URINE CLEAR (CLEAR); BILIRUBIN,URINE NEGATIVE (NEGATIVE); COLOR,URINE LIGHT-YELLOW (YELLOW); GLUCOSE, URINE (UA) NEGATIVE (NEGATIVE); KETONES,URINE NEGATIVE (NEGATIVE); LEUKOCYTE ESTERASE ,URINE NEGATIVE Leu/uL (NEGATIVE); NITRATE,URINE NEGATIVE (NEGATIVE); OCCULT BLOOD,URINE NEGATIVE (NEGATIVE); PH,URINE 7.5 (5.0-8.0); PROTEIN,URINE 10 mg/dL (NEGATIVE); UROBILINOGEN,URINE 0.2 mg/dL (0.2-1.0)
[2023-06-01 12:45] LABS: ADD UA MICROSCOPIC YES
[2023-06-01 13:04] LABS: RBC,URINE 0-1 /HPF (0-1); WBC,URINE 0-1 /HPF (0-1)
[2023-06-01] MEDS ORDERED: IBUP-2070 PO (14:08)
[2023-06-01 15:46] VITALS: BP 141/74; PULSE 70; RESP 16; O2SAT 97
== END 2023-06-01 15:49 | disposition home or self-care (01) ==
LOC: EDH 08:02
DX: M79.602 Pain in left arm (principal); R07.81 Pleurodynia; R55 Syncope and collapse; I10 Essential (primary) hypertension; K21.9 Gastro-esophageal reflux disease without esophagitis; Z79.899 Other long term (current) drug therapy; Z98.890 Other specified postprocedural states; Z88.0 Allergy status to penicillin; W18.39XA Other fall on same level, initial encounter; Y93.89 Activity, other specified; Y92.091 Bathroom in other non-institutional residence as the place of occurrence of the external cause; Y99.8 Other external cause status
CPT/HCPCS: 36415; 70450; 71045; 71100; 73030; 73060; 73090; 80053; 81001; 82550; 85025

== ENCOUNTER → 2023-06-25 | Outpatient (CLI) | payer OTHER ==
[~2023-06-25] MED LIST changes: +IBUP-2070 PO
== END | disposition home or self-care (01) ==
LOC: RAH 12:58
PROVIDERS: ATTEND Otolaryngology Plastic Surgery within the Head & Neck
DX: R13.10 Dysphagia, unspecified (principal); R63.30 Feeding difficulties, unspecified
CPT/HCPCS: 74230; 92611

== ENCOUNTER 2024-02-27 10:53 | Emergency (ER) | payer OTHER ==
[~2024-02-27] VITALS: Ht 180.3 cm; Wt 91.6 kg
[2024-02-27 11:23] LABS: ABG OXYGEN SATURATION 28.3 % (94.0-98.0); BASE EXCESS,VENOUS BLOOD GAS 7.2 (-2.0-3.0); DEVICE COMMENT VBGJUAN; HCO3,VENOUS BLOOD GAS 33.3 (22.0-29.0); PCO2,VENOUS BLOOD GAS 52 (38-54); PH,VENOUS BLOOD GAS 7.421 (7.320-7.430); PO2,VENOUS BLOOD GAS 18.4 mmHg (23.0-48.0); VENT MODE, BG NC-VBG (ROOM AIR)
[2024-02-27 11:27] LABS: BASOPHILS # (AUTO) 0.09 K/uL (0.00-0.20); BASOPHILS % (AUTO) 1.1 % (0.0-5.0); EOSINOPHILS # (AUTO) 0.15 K/uL (0.00-0.70); EOSINOPHILS % (AUTO) 1.9 % (0.0-8.0); HEMATOCRIT 34.3 % (42-54); IMMATURE GRANULOCYTE ABSOLUTE 0.02 K/uL (0-1); LYMPHOCYTES % (AUTO) 12.5 % (21.0-51.0); MEAN CORPUSCULAR HEMOGLOBIN 26.6 pg (27.0-33.0); MEAN CORPUSCULAR HGB CONC 30.3 g/dL (32.0-36.0); MEAN CORPUSCULAR VOLUME 87.7 fL (79-99); MONOCYTES # (AUTO) 1.1 K/uL (0.1-1.0); MONOCYTES % (AUTO) 14.1 % (3.0-13.0); NEUTROPHILS # (AUTO) 5.7 K/uL (1.8-7.7); NEUTROPHILS % (AUTO) 70.2 % (40.0-77.0); PLATELET COUNT (AUTO) 333 K/uL (130-400); RED BLOOD CELL COUNT(AUTO) 3.91 MIL/uL (4.50-6.20); RED CELL DISTRIBUTION WIDTH 16.6 % (11.0-15.5); WHITE BLOOD COUNT (AUTO) 8.1 K/uL (4.8-10.8)
[2024-02-27 11:39] LABS: POTASSIUM 3.9 mmol/L (3.5-5.1)
[2024-02-27 11:43] LABS: ALBUMIN 3.7 g/dL (3.5-5.0); BILIRUBIN,DIRECT 0.3 mg/dL (0.0-0.3); BILIRUBIN,TOTAL 1.1 mg/dL (0.2-1.0); MAGNESIUM 1.9 mg/dL (1.80-2.40); TOTAL PROTEIN, SERUM 7.1 g/dL (6.0-8.3)
[2024-02-27] MEDS: LAbetaLOL 20MG SYG IV ONE (13:19)
[2024-02-27 14:58] VITALS: BP 128/80; PULSE 82; RESP 20; TEMP 98; O2SAT 84
== END 2024-02-27 15:07 | disposition home or self-care (01) ==
LOC: EDH 10:53
DX: S01.112A Laceration without foreign body of left eyelid and periocular area, initial encounter (principal); H05.232 Hemorrhage of left orbit; H11.32 Conjunctival hemorrhage, left eye; J96.12 Chronic respiratory failure with hypercapnia; E78.00 Pure hypercholesterolemia, unspecified; I10 Essential (primary) hypertension; I48.91 Unspecified atrial fibrillation; J44.9 Chronic obstructive pulmonary disease, unspecified; Z79.899 Other long term (current) drug therapy; Z88.0 Allergy status to penicillin; Z95.810 Presence of automatic (implantable) cardiac defibrillator; W18.09XA Striking against other object with subsequent fall, initial encounter; Y93.89 Activity, other specified; Y92.89 Other specified places as the place of occurrence of the external cause; Y99.8 Other external cause status
CPT/HCPCS: 12011; 36415; 70450; 70486; 71045; 73030; 80048; 80076; 82550; 82803; 83605; 83735; 85025; 93005; 96374

== ENCOUNTER → 2024-03-25 | Outpatient (CLI) | payer OTHER ==
[2024-03-25 13:28] LABS: BASOPHILS # (AUTO) 0.09 K/uL (0.00-0.20); BASOPHILS % (AUTO) 1.4 % (0.0-5.0); EOSINOPHILS # (AUTO) 0.12 K/uL (0.00-0.70); EOSINOPHILS % (AUTO) 1.9 % (0.0-8.0); HEMATOCRIT 33.9 % (42-54); IMMATURE GRANULOCYTE ABSOLUTE 0.02 K/uL (0-1); LYMPHOCYTES # (AUTO) 0.9 K/uL (1.0-4.8); LYMPHOCYTES % (AUTO) 13.5 % (21.0-51.0); MEAN CORPUSCULAR HEMOGLOBIN 26.8 pg (27.0-33.0); MEAN CORPUSCULAR HGB CONC 29.8 g/dL (32.0-36.0); MEAN CORPUSCULAR VOLUME 89.9 fL (79-99); MONOCYTES # (AUTO) 0.9 K/uL (0.1-1.0); MONOCYTES % (AUTO) 13.8 % (3.0-13.0); NEUTROPHILS # (AUTO) 4.4 K/uL (1.8-7.7); NEUTROPHILS % (AUTO) 69.1 % (40.0-77.0); PLATELET COUNT (AUTO) 353 K/uL (130-400); RED BLOOD CELL COUNT(AUTO) 3.77 MIL/uL (4.50-6.20); RED CELL DISTRIBUTION WIDTH 16.9 % (11.0-15.5); WHITE BLOOD COUNT (AUTO) 6.3 K/uL (4.8-10.8)
[2024-03-25 13:39] LABS: ALBUMIN 3.8 g/dL (3.5-5.0); BILIRUBIN,TOTAL 1.2 mg/dL (0.2-1.0); POTASSIUM 3.7 mmol/L (3.5-5.1); TOTAL PROTEIN, SERUM 6.9 g/dL (6.0-8.3)
[2024-03-25 13:55] LABS: B-TYPE NATRIURETIC PEPTIDE 840 pg/mL (0-100)
== END | disposition home or self-care (01) ==
LOC: RAH 12:16
PROVIDERS: ATTEND Internal Medicine Cardiovascular Disease
DX: R91.8 Other nonspecific abnormal finding of lung field (principal); R06.02 Shortness of breath; I50.22 Chronic systolic (congestive) heart failure
CPT/HCPCS: 36415; 71046; 80053; 83880; 85025

== ENCOUNTER → 2024-04-04 | Outpatient (CLI) | payer OTHER ==
--- NOTE | 2024-04-06 07:16 | HMCSR ---
APPROVED REPORT EXAM: Two-dimensional and M-mode echocardiogram with Doppler and color Doppler. INDICATION ICD: Chronic systolic CHF I50.22 Atrial Fibrillation RISK FACTORS Hypertension 2D Dimensions RVDd5.9 cmLVEF(%)40.6 (>50%)LVED Vol(simp.)98.0 mL IVSd1.2 (0.7-1.1cm)FS(%)20 %LVES Vol(simp.)55.0 mL LVDd4.9 (3.8-5.6cm)LA (2D)4.8 (1.6-4.0cm)LVEF(%, simp.)43 % PWd1.2 (0.7-1.1cm)Ao Root(2D)3.4 (2.0-3.7cm)LA ESV INDEX (BP)32.31 mL/m2 LVDs3.9 (2.5-4.0cm)LVOT diam2.3 (1.8-2.4cm) IVC diam2.9 cm M-Mode Dimensions EPSS0.6 cm Aortic Valve AoV Vmax1.1 m/[place] Peak GR5.2 mmHgLVOT Vmax0.7 m/s AoV VTI0.2 mAo Mean GR3.1 mmHgLVOT VTI0.12 m CHERI (VMAX)2.5 cm2AVA (VTI) 2.5 cm2 Mitral Valve MV E Vmax72.0 cm/sDECEL Psdo112 ms MR Max PG47 mmHg TDI E/E' Cjbuzh06.2E/E' Lateral6.9 Pulmonary Valve PV Vmax0.5 m/sPV VTI0.09 mPV Mean GR1 mmHg PV Peak GR1.1 mmHgPI End Miriam. [place] 1.4 cm/s Tricuspid Valve TR Vmax3.6 m/sRAP (EST) 15 tfEtRNBJ13.2 mmHg TR Peak GR52.2 mmHg Left Ventricle Left ventricular cavity size is normal. Inferior hypokinesis There is mild concentric left ventricula r hypertrophy. LVEF is 40-45%. Indeterminate diastolic dysfunction. Right Ventricle The right ventricle is severely dilated. Right ventricular systolic function is borderline reduced. A ICD lead noted Atria The left atrium size is normal. The right atrium is severely dilated. Aortic Valve Aortic valve is trileaflet. The aortic valve is mildly thickened but opens well. Trace aortic regurgi tation. There is no aortic valvular stenosis. Mitral Valve Mitral valve leaflets are sclerotic but open well. Mitral regurgitation is mild. There is no mitral v alve stenosis. Tricuspid Valve The tricuspid valve leaflets appear normal. There is severe tricuspid regurgitation. Right ventricula r systolic pressure is estimated at greater than 60 mmHg. Pulmonic Valve The pulmonic valve leaflets are thin and pliable; valve motion is normal. There is trace pulmonic sayda vular regurgitation. Great Vessels Aortic root is within normal limits. IVC is dilated and collapses <50% with inspiration. Pericardium No pericardial effusion. Conclusion The right ventricle is severely dilated. LVEF is 40-45%. Inferior hypokinesis Mitral regurgitation is mild. There is severe tricuspid regurgitation. Right ventricular systolic pressure is estimated at greater than 60 mmHg.
== END | disposition home or self-care (01) ==
LOC: SHCH 11:07
PROVIDERS: ATTEND Internal Medicine Cardiovascular Disease
DX: I08.3 Combined rheumatic disorders of mitral, aortic and tricuspid valves (principal); I11.0 Hypertensive heart disease with heart failure; I50.22 Chronic systolic (congestive) heart failure; I48.91 Unspecified atrial fibrillation; Z95.810 Presence of automatic (implantable) cardiac defibrillator
CPT/HCPCS: 93306